=== PATIENT | male | born 1935 | race Caucasian/White ===

== ENCOUNTER → 2023-12-28 12:16 | Outpatient (REF) | payer OTHER, SELFPAY ==
--- NOTE | 2023-12-17 13:50 | TAVREVAL ---
TAVR Evaluation
Transthoracic Echocardiogram
Transthoracic Echocardiogram Date: 11/10/23
P/M: 103/70
DHAVAL: 0.5
AI: not documented
EF %: 65
MR/MAC: MAC, mild to moderate MR
Catherization
Catherization Date: 11/16/23
MG: unable to cross valve
Findings: 40% mid LAD stenosis
CAT Scan
CAT Scan Date: 12/28/23
Physician Visits
Date of Visit CT surgeon: Nakul: 12/28/23
Date of Visit Interventionalist:Hernesto/Hoang/Vel/Shelton: 11/29/23
Primary Ornamental Iron Erector Name: Rod
Date of Visit Primary Ornamental Iron Erector: 11/01/23
PCP Name: Ramirez Perry
Dentist Name: Dr Reynolds
Review of Systems
Review of Systems: Positive for Dyspnea
Plan
Plan:
11/29/2023: Consult for TAVR received from Dr. Eric.
11/30/2023: Reached out and spoke to patient's daughter, Penny Lawrence. Provided contact information and explained the TAVR evaluation process including labs, CT scan, dental clearance and CT surgery consult. Sent email with prescription as well as sent
electronically to lab [facility]ose[facility] for BMP. Will set up CT scan once lab results are received. Asked to get drawn aric. Lab slip and instructions as well as contact information also emailed to Penny.
12/08/2023: Phone call and email to Penny to follow up on blood work. Have not yet received results and not found in [facility] system.
12/15/2023: Received BMP results. Pateint set up for CT scan and consult with Dr. Mota for 12/28/2023. All instructions emailed to Penny as well as verbally reviewed over the phone. Allowed for and answered questions.
12/28/2023: Patient seen in consult with Dr. Mota.Reviewed the pathophysiology of aortic stenosis with the patient and his daughter. Explained the treatment options of SAVR and TAVR. Explained the TAVR evaluation process and Heart Team discussion.
Provided with copy of the TAVR education booklet. Allowed for and answered questions. MG is 70 and patient with recent dizziness and baseline chest discomfort. Stressed the importance of avoiding strenuous activity and rest periods. Patient and
daughter aware if symptoms progress to come to the emergency room. Accompanied to and assisted with CT scan after consult. Plan to discuss at SDM meeting on Wednesday and will call with plan.
== END ==
LOC: RAD 12:16
PROVIDERS: ATTENDING PHYSICIAN Nurse Practitioner Adult Health
DX: I35.0 Nonrheumatic aortic (valve) stenosis (principal)
CPT/HCPCS: 74174; 75572; Q9967

== ENCOUNTER 2024-01-06 07:28 | Inpatient (IN) | payer OTHER, SELFPAY ==
[2024-01-03 13:15] LABS: % Basophils 0.6 % (0-2); % Eosinophils 1.3 % (0-6); % Immature Granulocytes 0.4 % (0-0.5); % Lymphocytes 29.5 % (20.5-51.1); % Monocytes 7.1 % (1.7-9.3); % Neutrophils 61.1 % (42.2-75.2); Absolute Basophils 0.1 10^3/uL (0-0.2); Absolute Eosinophils 0.1 10^3/uL (0-0.7); Absolute Lymphocytes 2.7 10^3/uL (1.2-3.4); Absolute Monocytes 0.6 10^3/uL (0.1-0.6); Absolute Neutrophils 5.5 10^3/uL (1.4-6.5); Hematocrit 33.9 % (39.0-52.0); Hemoglobin 11.2 g/dL (13.0-18.0); Mean Corpuscular Hgb 29.7 pg (27.0-31.0); Mean Corpuscular Volume 89.9 fL (80.0-94.0); Mean Platelet Volume 10.3 fL (7.4-10.4); Nucleated Red Blood Cells % 0 % (-); Platelet Count 217 10^3/uL (130-400); Red Blood Cell Count 3.77 10^6/uL (4.70-6.10); Red Cell Dist. Width 14.8 % (11.5-14.5)
[2024-01-03 13:23] LABS: INR 1.06; PT 13.6 Sec (11.4-14.6)
[2024-01-03 13:24] LABS: APTT 36.2 Sec (23.4-35.0)
[2024-01-03 13:27] LABS: ALT (SGPT) 14 U/L (0-50); AST (SGOT) 33 U/L (17-59); Albumin 3.9 g/dl (3.5-5.0); Alkaline Phosphatase 87 U/L (38-126); Blood Urea Nitrogen 26 mg/dl (9-20); Calcium 9.2 mg/dl (8.4-10.2); Carbon Dioxide 25 mmol/L (22-30); Direct Bilirubin 0.3 mg/dl (0.0-0.4); Estimated Creatinine Clearance 33 ml/min; Glucose 124 mg/dl (70-99); Total Bilirubin 0.3 mg/dl (0.2-1.3); Total Protein 6.8 g/dl (6.3-8.2); eGFR 53.17
[2024-01-03 13:35] LABS: NT-proBNP 7270 pg/ml
--- NOTE | 2024-01-03 13:49 | CM ---
Chart reviewed. Met with the patient and his daughters. Patient is independent of ADLS, lives in an apartment Independent Living at [facility], 0 DME, not current with VN. Reviewed preoperative and postoperative instructions and
restrictions, along with showering guidelines. Gave patient 2 soaps. Patient is agreeable to a home visit by CT Transitional RN. Plan is for the patient to return home with CT Transitional RN.
[2024-01-03 13:50] LABS: Chloride 102 mmol/L (98-107); Potassium 4.6 mmol/L (3.5-5.1); Sodium 137 mmol/L (135-145)
[2024-01-03 14:40] LABS: Glycohemoglobin (HgbA1c) 5.9 % (4.0-5.6)
[2024-01-04 09:01] LABS: Urine Albumin Negative (Neg - Trace); Urine Bilirubin Negative (Negative); Urine Character Very Cloudy (Clear); Urine Color Yellow; Urine Glucose Negative (Negative); Urine Ketone Negative (Negative); Urine Leukocyte Negative (Negative); Urine Nitrite Negative (Negative); Urine Occult Blood Negative (Negative); Urine Specific Gravity 1.015 (<1.030); Urine Urobilinogen Negative (Neg - 1+)
[2024-01-06] VITALS (31 sets, daily range): BP systolic 44–147; BP diastolic 33–118; BMI 18.9
[2024-01-06] MEDS: ANCEF 10 IV ×2 (10:02)
[2024-01-06 11:08] LABS: ACT-LR - POC 261 Seconds (116-155)
--- NOTE | 2024-01-06 11:50 | W.CVOR.SURPR ---
CVOR Surgeon Immed Pre Op
-
I have examined this patient prior to performance of the scheduled procedure.
The patient's condition is unchanged from the time of the dictated/written History and
Physical and the patient is able to undergo the scheduled procedure.
--- NOTE | 2024-01-06 11:51 | W.IMMPOSTOP ---
Addendum entered and electronically signed by Cosme Mota MD 01/06/24 12:18:
[id number]
Original Note:
Surgical Immed Post Op Note
-
STRUCTURAL HEART PROCEDURE NOTE: TAVR
Preoperative Dx:
Severe aortic stenosis (P/M: 103/70, DHAVAL 0.4)
Mild non-obstructive CAD
Cognitive impairment w/ short-term memory loss
Anxiety
Essential tremor
BPH
Prostate CA
Anemia
GERD
HLD
Pancreatic cyst
Postoperative Dx:
Same
Elevated LVEDP c/w [id number] combined systolic/diastolic CHF (LVEDP 28mmHg)
Procedures:
1) L GREEN HOUSE MANAGER access w/ tactile and fluoroscopic guidance, micropuncture technique, 6Fr sheath placement, limited angiography
2) L CFV access w/ fluoroscopic guidance, micropuncture technique, 6Fr sheath placement
3) Placement of temporary RV pacing wire, threshold testing
4) Placement of pigtail catheter in RCC w/ limited aortography & confirmation of co-planar valve deployment angles
5) R GREEN HOUSE MANAGER access w/ tactile and fluoroscopic guidance, micropuncture technique, 6Fr sheath placement, limited angiography
6) Placement of perclose sutures x 2 into R GREEN HOUSE MANAGER, 8Fr sheath placement
7) Serial dilation of R ileofemoral system w/ placement of Sandoval E-sheath
8) Wire purchase across stenotic AV - challenging - AL-1, soft-tip straight, attempt w/ J-wire, successful cross w/ soft-tip straight, LVEDP assessment
9) Pre-TAVR BAV w/ 23mm Z-med
10) R TF TAVR w/ placement of 29mm ETIENNE 3 valve
11) Completion aortography
12) Completion TTE (no AI/PVL, mean gradient 3mmHg, new, small pericardial effusion)
13) Removal of valve-delivery system/Sandoval E-sheath w/ R GREEN HOUSE MANAGER mgmt w/ perclose sutures x 2, manual pressure
14) Completion R ileofemoral angiography w/ small dissection flap in EIA w/o compromise of flow to RLE, no active extravasation
15) Removal of L GREEN HOUSE MANAGER 6Fr sheath w/ mgmt w/ 6Fr angioseal, manual pressure
16) Removal of temporary pacing wire (new BBB w/o any significant bradycardia/pauses) & L CFV 6Fr sheath w/ manual pressure
17) Repeat TTE assessment (small pericardial effusion was unchanged, hemodynamics stable)
Division Officer Weapons Department:
Dr. Raymon Eric
Cardiac Surgeon:
Dr. Cosme Mota
Implants:
Sandoval [employer]iences, SN [id number], 29mm ETIENNE 3 valve
Perclose suture x 2
6Fr angioseal x 1
Complications:
New BBB
Limited retrograde dissection of R EIA
New, small, currently stable pericardial effusion
Cath Data:
Start: 1035, Deploy: 1119, End: 1140
FT: 18.6min, mGy: 158.41, DAP: 24.1299, Contrast: 70mL
Post-TTE: mean gradient 3mmHg, new/small pericardial effusion (stable thus far on delayed echocardiographic reassessment)
Condition:
Stable/guarded to recovery
Additional repeat echocardiography
--- NOTE | 2024-01-06 12:05 | W.PN.UPDATE ---
Update Note
Progress Note Update
Reviewed Mr. Bonilla with the heart team in the preTAVR SDM meeting and confirmed a 29 mm S3 via right transfemoral access. Patient will resume aspirin post TAVR. LVEDP 28mmHg. #29mm S3 (serial# [id number]) successfully deployed via (R) TF access.
Post implant MG 3mmHg.
--- NOTE | 2024-01-06 12:28 | ITS.CL.TAVR ---
Service Department Manager - TAVR Report
TAVR PRocedure
Procedure Report:
TRANSCATHETER AORTIC VALVE REPLACEMENT REPORT
Date: 12/17/2023
Referring physician: Shane Velasco DO
Operators:
varnish thinner: Colten Eric MD
Cardiac surgeon: Cosme Mota MD
Procedure:
Conscious sedation was provided by anesthesia. Using a micropuncture technique, 6F sheaths were placed in the LFA and LFV. A transvenous pacemaker was advanced to the RV and excellent thresholds obtained. A pigtail catheter was advanced to the
aortic root where low volume injections were performed to identify an appropriate angle for valve deployment deployment. Access was then obtained in the right femoral artery using a micropuncture technique. A 6Fsheath was placed and angiography
confirmed a AS400 ANALYST puncture site. Heparin 3000 units was administered. Two perclose sutures were preset using the preclose technique. An 8F sheath was placed in the LFA and an Amplatz extra stiff wire advanced into the thoracic aorta. The ileofemoral
vessels were dilated using the Sandoval 16 F dilator. An Sandoval E sheath was advanced into the descending thoracic aorta. Additional heparin 2000 units was administered. The valve was crossed using a diagnostic 6F AL1 catheter and a straight wire.
An Amplatz extra stiff wire with a homemade curve was placed in the LV apex. Balloon aortic valvuloplasty was performed using a 23 mm Z-Med balloon during rapid ventricular pacing. The patient's hemodynamics recovered quickly following BAV. An
Sandoval 29 mm Lexie S3 valve was then advanced with great difficulty through the E sheath - there were several areas of iliofemoral narrowing which made passing the valve through the sheath extremely difficult. Once this was accomplished the valve
was prepared for transit around the arch to the valve plane. The valve was carefully advanced across the aortic annulus and deployed during rapid ventricular pacing. Echocardiography and aortography confirmed an excellent result. The mean gradient
across the valve was only 3 mmHg with no AI. We noticed a small pericardial effusion which had not been present on the prior echocardiogram of 11/10/2023. The transvenous pacemaker was removed from the RV apex and positioned in the IVC and after
approximately 5 minutes we repeated the echo showing stability of the small pericardial effusion. The valve deployment system was removed. The Sandoval E sheath was then removed and hemostasis obtained with the two perclose sutures. Final angiography
demonstrated a linear dissection in the external iliac region with no significant flow compromise and good runoff below the common femoral artery. The pacemaker was removed and the LFV sheath removed with manual hemostasis. The LFA sheath was
removed using a 6 F angioseal. Prior to transfer off the Table we repeated the echocardiogram continuing to show the small pleural effusion unchanged in size.
Radiation (mGy): 158
DAP (cm2.Gy)): 24.1
More time: 18.6 minutes
Conclusions: Successful placement of 29 mm Lexie S3 aortic valve via right transfemoral approach. There is a small pericardial effusion noted on the postprocedure echocardiogram which remained stable for period of about 20 minutes and was not
causing any hemodynamic compromise. We will monitor the patient carefully and obtain a follow-up echocardiogram in approximately 4 hours. If he develops any hemodynamic instability, he may need pericardiocentesis. There is a nonflow-limiting
external iliac dissection likely resulting from the extreme force required to get the valve through the Sandoval E sheath. We will monitor distal pulses. It is likely that this will heal without incident as it is likely in a retrograde direction.
Copy: Shane Velasco DO, Nakul Khan DO
--- NOTE | 2024-01-06 14:37 | ITS.CL.PN ---
Optometrist - Procedure Note
Procedure
Procedure Note:
PERICARDIOCENTESIS REPORT
Date of Procedure: 01/06/2024
Referring: Cosme Mota MD
PROCEDURE SUMMARY:
Successful pericardiocentesis with removal of 365 mL blood for a hemodynamically significant pericardial effusion several hours after TAVR
DESCRIPTION OF PROCEDURE: The patient was noted at the conclusion of the TAVR procedure to have a small pericardial effusion. At that time he was hemodynamically stable and not requiring pressor therapy. In the recovery room he required Levophed
and had intermittent episodes of hypotension. Interestingly, there was never tachycardia. We felt he would be best treated with pericardiocentesis and informed consent was obtained from his daughter for this procedure. Upon return to the Cath
Lab, prior to the procedure, echocardiography showed the effusion to be significantly larger than it was several hours earlier when he left the Optometrist.
A standard 7 cm micropuncture needle and a 9 cm micropuncture needle could not access the pericardial space. A spinal needle was able to enter the pericardial space and a 6 Turkmen long sheath was placed. Initial intrapericardial pressure was 20
mmHg consistent with tamponade. Fluid hemoglobin was measured at 9.8 with sat 78% consistent with venous blood. Agitated saline injection confirmed proper position of the sheath in the pericardium by echocardiography. At this point, we removed
365 mL of blood. The intrapericardial pressure fell to 7 mmHg. Systolic blood pressure increased from 85 mmHg on 6 mcg/kg/min of Levophed to 159 mmHg off Levophed consistent with relief of tamponade. A drain was left in place to suction and he
was transferred to the recovery room in good condition.
Radiation (mGy): 50
DAP (cm2.Gy): 5.5
Fluoroscopy time: 2.7 minutes
CONCLUSIONS: Successful pericardiocentesis with removal of 365 mL of blood for tamponade occurring as a complication of TAVR. We will monitor drainage and remove the drainage catheter hopefully within the next 24-48 hours
Copy to: Shane Chambers DO, Nakul Khan DO
Colten Eric MD, [facility], [facility]
--- NOTE | 2024-01-06 15:18 | CM ---
Chart reviewed. Patient is in the OR today. Patient is independent of ADLS, lives in a apartment in Independent Living at [facility] access, 0 DME. Plan is for the patient to return home with CT Transitional RN. CM to follow
--- NOTE | 2024-01-06 15:30 | PTCARENOTE ---
Pt arrived to CVICU from the labor relations or personnel negotiator at 1440. Pt awake, alert, and oriented to person and situation. Pt unable to state the date or what hospital he is in. Pt very forgetful. Bed alarm on. Pt remains SR with BBB, HR 70's. BP 120/71 MAP 86. Pulse
oximetry 99% on room air. Bilateral groin sites CDI. Pedal pulses easily palpable. Pericardial drain sutured in place. Pt currently resting comfortably in bed with call arriaza within reach.
[2024-01-06] MEDS: ROXICODONE 5 MG PO (16:28)
[2024-01-06] MEDS: DILAUDID 0.25 MG IV (17:39)
[2024-01-06] MEDS: ANCEF 5 IV (17:39)
[2024-01-06] MEDS: THERAGRAN PO (17:40)
[2024-01-06] MEDS: OSCAL 500 + D 500 MG PO (20:10)
[2024-01-06] MEDS: TYLENOL 650 MG PO (20:11)
[2024-01-06] MEDS: MAALOX 30 ML PO (20:12)
--- NOTE | 2024-01-06 20:15 | PTCARENOTE ---
Assumed care of patient at 1900. Patient found in bed at time of assessment. Patient is AOx1, DO Time, Place, Situation. Patient is forgetful with noticeable short term memory loss. Patient has tremors in both hands. Lung sounds are diminished in
the bases, on RA saO2 at 99%. There is chest drain in place for pericardial effusion that is draining red sanguineous to vacuum bottle. Heart sounds have a regular rate and rhythm. Patient is SR with BBB and long QT on the monitor. Patient has
normal palpable pulses and no edema is noted. There are active BS throughout all four quadrants of soft nontender abdomen. Patient is voiding clear yellow in urinal. Patient has R AC PIV available for intermittent infusion. VSS. Patient c/o
recurrent chest pain that comes and goes history suggests GERD but will continue to monitor. CT PA notified. Received orders for Maalox. No other complaints at this time.
[2024-01-07] VITALS (21 sets, daily range): BP systolic 92–133; BP diastolic 48–116; PULSE 65–82; O2SAT 98–100; BMI 18.7
[2024-01-07] MEDS: MAALOX 30 ML PO (00:50)
[2024-01-07] MEDS: TYLENOL 650 MG PO ×3 (00:50→10:24)
--- NOTE | 2024-01-07 01:00 | PTCARENOTE ---
Patient reassessed. VSS. Patient forgetful attempting to get out of bed throughout night without assistance. Bed alarm in place effective in maintaining patient safety. Patient c/o shoulder pain and heartburn around 0030. Received additional dose of
tylenol and maalox. Remains SR with BBB, PACs, occasional PVCs.
--- NOTE | 2024-01-07 01:37 | PTCARENOTE ---
At 0129 patient with 12 beat run of tachycardia HR 129. CT PA notified. Patient asymptomatic and sleeping at the time. Will continue to monitor.
[2024-01-07 04:01] LABS: Hematocrit 32.2 % (39.0-52.0); Hemoglobin 10.7 g/dL (13.0-18.0); Mean Corp Hgb Conc. 33.2 g/dL (33.0-37.0); Mean Corpuscular Hgb 29.2 pg (27.0-31.0); Mean Corpuscular Volume 87.7 fL (80.0-94.0); Mean Platelet Volume 10.4 fL (7.4-10.4); Platelet Count 174 10^3/uL (130-400); Red Blood Cell Count 3.67 10^6/uL (4.70-6.10); Red Cell Dist. Width 14.6 % (11.5-14.5); White Blood Cell Count 21.3 10^3/uL (4.8-10.8)
[2024-01-07 04:23] LABS: Blood Urea Nitrogen 32 mg/dl (9-20); Calcium 9.4 mg/dl (8.4-10.2); Carbon Dioxide 22 mmol/L (22-30); Chloride 105 mmol/L (98-107); Estimated Creatinine Clearance 33 ml/min; Glucose 117 mg/dl (70-99); Potassium 4.7 mmol/L (3.5-5.1); Sodium 139 mmol/L (135-145); eGFR 53.17
--- NOTE | 2024-01-07 04:45 | PTCARENOTE ---
Patient reassessed. VSS. No c/o pain or discomfort at this time. AM labs obtained. Low UOP noted throughout night although void attempts have been frequent. Bladder scan of patient revealed 368mL in the bladder. Patient able to void 60mL and had
small incontinence episode following scan. Will continue to monitor. AM EKG obtained. On registered nurse cardiac noted to be in SR with BBB, PACs. Patient is stable.
--- NOTE | 2024-01-07 04:55 | W.PN.CT ---
Addendum entered and electronically signed by Cosme Mota MD 01/07/24 13:48:
I saw and examined the patient.
The PA's note was reviewed and I agree with the note.
Comment:
Doing well status post TAVR complicated by limited dissection of right external iliac artery and pericardial effusion requiring pericardiocentesis with catheter remaining. No significant drainage overnight.
Maintain pericardial drain today
Continue to monitor new left bundle branch block
Continue aspirin
OOB/IS
Original Note:
Today's Communication / Plan
-
-pod #1
-no issues overnight
-s/p pericardiocentesis/drain placement post TAVR- 90/140 output in 12/24 hrs
-nsr 70s with IR Diagnostyxq PACs overnight. 12 beat SVT while sleeping, asymptomatic. No kip or pauses
-new LBBB - holding Propranolol
-Echo today
-current meds (ASA, Feosol, Remeron, Protonix). Holding Propranolol
-encourage IS, OOB
Assessment / Plan
-
- Severe symptomatic - s/p Pre-TAVR BAV w/ 23mm Z-med, followed by R TF TAVR w/ placement of 29mm ETIENNE 3 valve on 01/06/24, pod #1
- Elevated LVEDP c/w byvfa-bc-mbybsor combined systolic/diastolic CHF (LVEDP 28mmHg)
- Acute postop tamponade - s/p successful pericardiocentesis with removal of 365 mL of blood
- Acute postop LBBB
- Mild non-obstructive CAD
- Cognitive impairment w/ short-term memory loss
- Anxiety
- Essential tremor
- BPH
- Prostate CA
- Chronic Anemia
- GERD
- HLD
- Pancreatic cyst
Discussed patient care with: Nursing and Care Team
Subjective
Procedure
- s/p Pre-TAVR BAV w/ 23mm Z-med, followed by R TF TAVR w/ placement of 29mm ETIENNE 3 valve on 01/06/24
- successful pericardiocentesis with removal of 365 mL of blood post TAVR
-
Date of Service: January 06, 2024
Objective Data
-
Lab Results
01/03/24 12:43
01/03/24 12:43
PT 13.6 Sec (11.4-14.6) 01/03/24 12:43
INR 1.06 01/03/24 12:43
APTT 36.2 Sec (23.4-35.0) H 01/03/24 12:43
Vital Signs
Vital Signs
Temp Pulse Resp BP Pulse Ox
97.7 F 77 16 132/59 96
01/06/24 23:00 01/06/24 23:30 01/06/24 23:30 01/06/24 23:27 01/06/24 23:30
CT Intake/Output/Weight
01/06/24 01/06/24 01/07/24
06:59 18:59 06:59
Intake Total 1500 / 1500
Output Total 250 / 465 215 / 465
Balance 1250 / 1035 -215 / 1035
SaO2: 96
Physical Exam
-
General: Awake and AOx3 (very forgetful)
Cardiovascular: Regular rate & rhythm, No Murmurs and No Rub
Respiratory: Clear
Incision: Other (groins are cdi, soft, nontender, no hematoma b/l)
Extremities: No Edema (2+ DP b/l)
Data Reviewed
-
Lab Results: Results Reviewed
Medications: Active Meds Reviewed
Chest X-Ray: Report Reviewed and Image Reviewed
ECG: Report Reviewed and Image Reviewed
[2024-01-07] MEDS: ASPIR LOW (ENTERIC COATED) 81 MG PO (07:52)
[2024-01-07] MEDS: PROTONIX 40 MG PO (07:52)
[2024-01-07] MEDS: OSCAL 500 + D 500 MG PO ×2 (07:52→19:50)
[2024-01-07] MEDS: FEOSOL 325 MG PO (07:52)
[2024-01-07] MEDS: THERAGRAN 1 TABLET PO (07:52)
--- NOTE | 2024-01-07 07:54 | W.PN.ANS.POP ---
Anesthesia Post Operative
- Anesthesia Post Op Note
Vital Signs Stable-See Nursing Note: Yes
Airway Patent: Yes
Adequate Pain Control: Yes
Change in Mental Status: No
Current Postoperative Nausea & Vomiting: No
Anesthesia Complications: No
General Anesthetic Recall: No
Unplanned Admission: No
Post Op Hydration Adequate: Yes
--- NOTE | 2024-01-07 08:58 | PTCARENOTE ---
Received pt from multiple cut off saw operator RN; pt AAOx1 and bed alarm on; NSR Prolong QT and L BBB on monitor and VSS; lungs diminished; positive bowel sounds; pt voiding small amounts of urine, bladder scan performed and 377 mls resulted; palpable pulses
throughout; no edema noted; B/L groin dressing C/D/I; Pericardial drain dressing C/D/I; see nursing documentation for further details.
--- NOTE | 2024-01-07 09:58 | CARDSERVLU ---
Echocardiogram with Lumason completed after protocol screening completed. Allergies verified.
Patent IV site: Left arm median cubital 20 G PC
IV site flushed with 0.9% NaCl pre and post administration.
Diluted bolus method utilized to enhance visualization of ventricular pereira.
Total volume given: ___2_ mL
Patient tolerated all procedures well without complications.
--- NOTE | 2024-01-07 10:02 | W.PN.CD ---
Today's Communication / Plan
-
-Post pericardiocentesis
-Drain remains intact. 100 mL over the last 12 hours. Interventional cardiology to assess timing of removing pericardial drain
-Monitor on telemetry with new LBBB
Impression / Plan
-
88-year-old male with history of severe aortic stenosis, mild nonobstructive coronary disease, hypercholesterolemia, mild cognitive impairment who underwent TAVR 01/07/2024.
TAVR 01/07/2024. Procedure complicated by development of pericardial effusion requiring pericardiocentesis. In addition there was a retrograde dissection of the iliac which has been monitored conservatively.
-Cath site is fine
-Pericardial drain remains intact.
-New left bundle branch block. Previous ECG 01/02/2023 with narrow QRS.
-Echo pending
.
Left bundle branch block. Monitor on telemetry. If rhythms remained stable patient will require additional outpatient monitoring.
.
Pericardial effusion
-Post pericardiocentesis
-Drain remains intact. 100 mL over the last 12 hours. Interventional cardiology to assess timing of removing pericardial drain
-Follow-up echo
Physical Exam
Vital Signs/Labs
Vital Signs
Temp Pulse Resp BP Pulse Ox
97.6 F 68 16 95/50 96
01/07/24 08:00 01/07/24 09:00 01/07/24 09:00 01/07/24 09:00 01/07/24 09:25
01/06/24 01/07/24 01/08/24
06:59 06:59 06:59
Actual Weight 57.4 kg
01/07/24 03:46
01/07/24 03:46
PT 13.6 Sec (11.4-14.6) 01/03/24 12:43
INR 1.06 01/03/24 12:43
APTT 36.2 Sec (23.4-35.0) H 01/03/24 12:43
Magnesium 2.0 mg/dl (1.6-2.3) 01/07/24 03:46
01/03/24
12:43
[id number]-Eqnbpfltyxp Pept 7270
Physical Exam
Constitutional: No acute distress
Cardiovascular: Rhythm & rate is regular and Other (Pericardial rub. Pericardial drain intact)
Respiratory: Respiratory effort normal
GI: Soft, Non tender, Normal bowel sounds and Other (Nontender. No mass)
Neuro/Psych: Alert and Other (Cooperative.)
Other: Other (Bilateral groin cath sites are fine.)
Data Reviewed
-
Date of Service: January 07, 2024
EKG: Tracing Personally Visualized and interpreted and Report Reviewed by me
X-Ray/CT/US/MRI/NUC/PET: Report Reviewed by me
Medical Tests (PFT, Pathology etc): Report Reviewed by me
Labs: Labs Reviewed by me
[2024-01-07] MEDS: LIDOCAINE 4% PATCH 2 PATCH TOPICAL (11:49)
--- NOTE | 2024-01-07 12:30 | PTCARENOTE ---
Assessment unchanged; NSR L BBB on monitor and VSS; family at bedside update given; bladder scan 394mls.
--- NOTE | 2024-01-07 14:02 | W.PN.UPDATE ---
Update Note
Progress Note Update
Patient to wear a accounts payable assistant for 14 days following discharge. Device given to patient's daughter to apply upon discharge. Reviewed how to apply, change leads, charge and return the monitor after the 14 days. Allowed for and answered questions.
Trifold leaflet reviewed as well as help desk number if any questions regarding the monitor.
--- NOTE | 2024-01-07 15:45 | PTCARENOTE ---
NSR L BBB on monitor and VSS: assessment unchanged; pt voided small amount in toilet, bladder scan 366mls; pt resting in bed with bed alarm on and in place and family at bedside.
--- NOTE | 2024-01-07 16:26 | CM ---
Chart reviewed. Patient is independent of ADLS, lives alone in independent living at [facility]. Patient appears weak and deconditioned. Family requesting patient to go to SNF at [facility] before returning back to his apartment. [facility] at [facility] has a bed available. Patient needs PT evaluation. Multiple attempts at contacting PT for an evaluation without assessment. Patient also needs insurance preauthorization. Plan is for the patient to go to SNF
--- NOTE | 2024-01-07 16:33 | PTCARENOTE ---
Dr Eric at bedside, Pericardial drain removed. NSR L BBB on monitor and VSS; updates given to daughters by Dr Eric.
--- NOTE | 2024-01-07 17:19 | CM ---
Patient was approved Skilled Level 1 01/07-01/10 NRD 01/10 to be called to [phone]. Auth #[id number]
--- NOTE | 2024-01-07 20:37 | PTCARENOTE ---
Received patient for 7p-7a shift. Pt AAOx1, pleasantly confused. NSR on surveillance system monitor, VSS. 1 person assist to bathroom. Pericardial drain d/c earlier today, mid chest dsg c/d/i. Pt denies chest pain, sob at this time. IS up to 1500, encouraged.
Medications administered as ordered. Bed and chair alarm maintained. Call arriaza in reach, pt demonstrates use of call arriaza. Pt maintained in view of nurses' station. Will continue to monitor.
[2024-01-07] MEDS: REMERON 7.5 MG PO (21:07)
[2024-01-08] VITALS (7 sets, daily range): BP systolic 101–142; BP diastolic 51–60; PULSE 81; O2SAT 95–100; BMI 18.8
--- NOTE | 2024-01-08 04:55 | W.PN.CT ---
Addendum entered and electronically signed by Cosme Mota MD 01/08/24 10:03:
I saw and examined the patient.
The PA's note was reviewed and I agree with the note.
Comment:
No issues. At baseline. Pericardial drain removed yesterday
No pauses/bradycardia
Monitor in-place given new LBBB
OK for D/C to [facility] today
Original Note:
Today's Communication / Plan
-
-No major issues overnight. Hemodynamically and neurologically intact
-Alert and oriented x 1 (not oriented to place or time) but appears to be baseline, pleasant
-Groin is C/D/I without ecchymosis or significant hematoma. Cont. to monitor
-Pericardial drain d/c'd by Dr. Eric yesterday 01/06
-Repeat echo yesterday 01/06 showed TAVR to be well seated with PG/MG of 10/4 mmHg without aortic regurgitation, trivial pericardial effusion
-EKG still shows new LBBB, no rhythm issues overnight
-Cont. current meds (ASA only, Remeron)
-OOB into chair/Ambulate
-D/C to SNF @ [facility], will need COVID test prior
-Going to SNF with heart monitor ([facility]) X 14 days per Cardiology
Assessment / Plan
-
- Severe symptomatic - s/p Pre-TAVR BAV w/ 23mm Z-med, followed by R TF TAVR w/ placement of 29mm ETIENNE 3 valve on 01/06/24, pod #2
- Elevated LVEDP c/w [id number] combined systolic/diastolic CHF (LVEDP 28mmHg)
- Acute postop tamponade - s/p successful pericardiocentesis with removal of 365 mL of blood
- Acute postop LBBB
- Mild non-obstructive CAD
- Cognitive impairment w/ short-term memory loss
- Anxiety
- Essential tremor
- BPH
- Prostate CA
- Chronic Anemia
- GERD
- HLD
- Pancreatic cyst
Discussed patient care with: Cardiology, Nursing, Respiratory Therapy, Pharmacy and Care Team
Subjective
Procedure
- s/p Pre-TAVR BAV w/ 23mm Z-med, followed by R TF TAVR w/ placement of 29mm ETIENNE 3 valve on 01/06/24
- successful pericardiocentesis with removal of 365 mL of blood post TAVR
-
Date of Service: January 08, 2024
Pt c/o mild incisional pain, otherwise feels well
Objective Data
-
PT 13.6 Sec (11.4-14.6) 01/03/24 12:43
INR 1.06 01/03/24 12:43
APTT 36.2 Sec (23.4-35.0) H 01/03/24 12:43
Vital Signs
Vital Signs
Temp Pulse Resp BP Pulse Ox
98.1 F 75 18 108/57 95
01/07/24 23:19 01/08/24 00:30 01/07/24 23:19 01/07/24 23:19 01/07/24 23:19
CT Intake/Output/Weight
01/07/24 01/07/24 01/08/24
06:59 18:59 06:59
Output Total 345 / 595 55 / 55
Balance -345 / 905 -55 / -55
SaO2: 95 (RA)
Physical Exam
-
General: Awake and Oriented (x1 (not oriented to place or time))
Cardiovascular: Regular rate & rhythm, No Murmurs, No Rub and No Gallop
Respiratory: Clear
Sternum: Stable
Incision: Clean, Dry, Intact and Dressing Intact
Extremities: No Edema
Data Reviewed
-
Lab Results: Results Reviewed
Medications: Active Meds Reviewed
Chest X-Ray: Report Reviewed and Image Reviewed
ECG: Report Reviewed and Image Reviewed
--- NOTE | 2024-01-08 05:16 | PTCARENOTE ---
Patient reassessed, assessment unchanged from previous. Oriented to self, pleasantly confused at baseline. SR w bbb, pacs and pvcs on conveyor monitor, VSS. EKG done, labs drawn and sent. Pt resting comfortably. Will continue to monitor.
[2024-01-08 05:23] LABS: Hemoglobin 9.4 g/dL (13.0-18.0); Mean Corp Hgb Conc. 33.6 g/dL (33.0-37.0); Mean Corpuscular Hgb 29.7 pg (27.0-31.0); Mean Corpuscular Volume 88.3 fL (80.0-94.0); Mean Platelet Volume 10.6 fL (7.4-10.4); Platelet Count 138 10^3/uL (130-400); Red Blood Cell Count 3.17 10^6/uL (4.70-6.10); Red Cell Dist. Width 14.8 % (11.5-14.5); White Blood Cell Count 11.9 10^3/uL (4.8-10.8)
[2024-01-08 05:48] LABS: Blood Urea Nitrogen 34 mg/dl (9-20); Calcium 9.2 mg/dl (8.4-10.2); Carbon Dioxide 23 mmol/L (22-30); Chloride 105 mmol/L (98-107); Estimated Creatinine Clearance 30 ml/min; Glucose 107 mg/dl (70-99); Potassium 4.2 mmol/L (3.5-5.1); Sodium 135 mmol/L (135-145); eGFR 48.65
[2024-01-08] MEDS: FEOSOL 325 MG PO (07:42)
[2024-01-08] MEDS: OSCAL 500 + D 500 MG PO (07:42)
[2024-01-08] MEDS: ASPIR LOW (ENTERIC COATED) 81 MG PO (07:42)
[2024-01-08] MEDS: PROTONIX 40 MG PO (07:42)
[2024-01-08] MEDS: LIDOCAINE 4% PATCH TOPICAL (07:42)
[2024-01-08] MEDS: THERAGRAN 1 TABLET PO (07:42)
[2024-01-08 07:55] LABS: COVID-19 Antigen Negative (Negative)
--- NOTE | 2024-01-08 08:00 | PTCARENOTE ---
Assumed care of patient from assistant casino shift manager RN. AAO to self, pleasant but very poor short term memory. Needs frequent redirecting. Bed alarm and chair alarm on and armed. SR w/ BBB and PVC's on monitor. Room air 96%. IS to 1000 with assistance .
Surgical sites c,d,i. Voiding in bathroom. No edema appreciated. Plan for day discussed.
--- NOTE | 2024-01-08 08:14 | W.PN.CD ---
Today's Communication / Plan
-
Agree with plans
F/u planned
Impression / Plan
-
88-year-old male with history of severe aortic stenosis, mild nonobstructive coronary disease, hypercholesterolemia, mild cognitive impairment who underwent TAVR 01/07/2024.
TAVR 01/07/2024 for severe symptomatic (elevated LVEDP noted)
- Pericardial drain removed 01/07/2024
- Doing well
New LBBB
- No AV block on tele
- Plan is for outpt [facility]
Physical Exam
Vital Signs/Labs
Vital Signs
Temp Pulse Resp BP Pulse Ox
97.5 F 80 16 109/56 98
01/08/24 07:42 01/08/24 07:42 01/08/24 07:42 01/08/24 05:02 01/08/24 07:42
01/07/24 01/08/24 01/09/24
06:59 06:59 06:59
Actual Weight 57.4 kg 57.7 kg
01/08/24 05:00
01/08/24 05:00
PT 13.6 Sec (11.4-14.6) 01/03/24 12:43
INR 1.06 01/03/24 12:43
APTT 36.2 Sec (23.4-35.0) H 01/03/24 12:43
Magnesium 2.0 mg/dl (1.6-2.3) 01/08/24 05:00
01/03/24
12:43
Ogk-Z-Ioqgnobriwb Pept 7270
Physical Exam
Constitutional: No acute distress
Cardiovascular: Rhythm & rate is regular and Pedal edema is absent
Respiratory: Respiratory effort normal and Lungs clear to auscul.
GI: Soft and Distention absent
Neuro/Psych: Alert
Data Reviewed
-
Date of Service: January 08, 2024
--- NOTE | 2024-01-08 11:18 | W.DCSUMMARY ---
Discharge Summary
Discharge Data
Date of Admission: 01/06/24
Date of Discharge: 01/08/24
Total time spent discharging patient (in min): 60
-
Pending Results: No
Hospital Course
Patient was admitted electively and underwent transfemoral transcatheter aortic valve replacement by Drs. Cosme Mota & Colten Eric on January 06, 2024. Please refer to their separately dictated operative reports for complete details.
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 Patient also had a new left bundle branch block. There was
also a new pericardial effusion that developed postoperatively as well as worsening shock requiring pressor support. Transthoracic echocardiogram revealed a new pericardial effusion for which a pericardiocentesis was done and a drain placed. The
drain was removed the afternoon of postoperative day #1. Repeat transthoracic echocardiogram showed a trivial pericardial effusion, a well-seated transcatheter valve with acceptable gradients and no aortic insufficiency. Ultimately, the patient
was cleared for discharge to a long-term facility with plans for further discharge back to his assisted living arrangement. Patient will be discharged with a heart monitor given his new left bundle branch block. This will be followed by
cardiology outpatient. We will stop his home propranolol to avoid propagating further rhythm disturbances.
Discharge Plan
-
Patient Disposition: Long-Term/SNF
Discharge Diagnosis/Procedures: - Severe symptomatic aortic stenosis-status post pretranscatheter aortic valve replacement balloon aortic valvuloplasty with 23mm Z-med, followed by right transfemoral transcatheter aortic valve replacement with 29mm
Sandoval ETIENNE 3 valve on 01/06/24
- Elevated left ventricular end-diastolic pressure consistent with [id number] combined systolic/diastolic congestive heart failure
- Acute postoperative cardiac tamponade -status post successful pericardiocentesis with removal of 365 mL of blood
- Acute postoperative left bundle branch block
- Mild non-obstructive coronary artery disease
- Cognitive impairment with short-term memory loss
- Anxiety
- Essential tremor
- Benign prostatic hyperplasia
- Prostate cancer
- Chronic Anemia
- Gastroesophageal reflux disease
- Hyperlipidemia
- Pancreatic cyst
Diet: Low Cholesterol and 2 Gram Sodium
Activity: As tolerated
Driving Restrictions: No driving for 1 week
Bathing Restrictions: OK to Shower
Others Tests: 30 Day Follow Up Echocardiogram: 02/08/2024 at 2:20pm in Dr. Velasco's office.
Other Services: Cardiac Rehab
Wound Care: Please do not apply lotions, creams or powders to groin areas. Please monitor groins for increased pain, swelling, redness or drainage. Notify your doctor if any occur.
Specialty Instructions: Weigh Daily- Call MD for wt gain/loss 3 lbs overnight/5 lbs in 1 week
Activity Restrictions/Additional Instructions:
Please call to make appointments for Phase II Cardiac Rehab (if able):
[facility]: [phone]
[facility]: [phone]
Referrals:
[facility] [Other] (FAX [phone])
Shane Velasco DO [Active] - 02/01/24 2:00 pm
SERAFIN DORANTES DO [Family Provider] -
Cosme Mota MD [Active] - in two weeks
Prescriptions:
New
acetaminophen 325 mg Tablet
650 mg PO Q4HPRN PRN (Reason: PEGUERO, mild pain, or fever >101F) Qty: 60 0RF
Continued
aspirin [Aspir-81] 81 mg Tablet,Delayed Release (Dr/Ec)
81 mg PO DAILY
pantoprazole 40 mg Tablet,Delayed Release (Dr/Ec)
40 mg PO DAILY
mirtazapine 7.5 mg Tablet
7.5 mg PO HS
Slow Rel Iron 160 mg (50 mg iron) Tablet Extended Release
160 mg PO DAILY
calcium carbonate-vitamin D3 [Calcium 500 + D] 500 mg-10 mcg (400 unit) Tablet
1 tab PO BID
Discontinued
propranolol 10 mg Tablet
10 mg PO HS
Discharge Orders:
Discharge Patient (As Directed); Ordered 01/08/24
Ordered By: Tyrese Morton
Care Plan Goals
Care Plan Goals:
Problem: Readiness for enhanced knowledge related to diagnosis and treatment plan
Goal: Understand your diagnosis and treatment plan needs, including medications if applicable.
Instructions: Know your diagnosis, underlying causes and treatment plan options, including medications if applicable. Consult with your health care team to learn about your diagnosis and treatment plan, including medications if applicable.
Discharge Date and Time
Print Language: TAMAZIGHT
--- NOTE | 2024-01-08 12:42 | PTCARENOTE ---
Report called to [facility]. INT and monitor removed by RN. Daughter placed temporary monitor on patient while utilizing monitor handout. Dressed by staff and wheeled to car by RN
[2024-01-11 08:43] LABS: ACT-LR - POC > 397 Seconds (116-155)
== END 2024-01-08 12:04 | DRG 266 ==
LOC: CVICU 07:28
PROVIDERS: Clinical Nurse Specialist Acute Care; ADMITTING PHYSICIAN Thoracic Surgery (Cardiothoracic Vascular Surgery); CONSULT PHYSICIAN Internal Medicine Cardiovascular Disease; FAMILY PHYSICIAN Internal Medicine
PROC: 02RF38Z Replacement of Aortic Valve with Zooplastic Tissue, Percutaneous Approach (ICD-10-PCS; 2024-01-06)
PROC: 0W9D3ZZ Drainage of Pericardial Cavity, Percutaneous Approach (ICD-10-PCS; 2024-01-06)
DX: I35.0 Nonrheumatic aortic (valve) stenosis (principal); I50.43 Acute on chronic combined systolic (congestive) and diastolic (congestive) heart failure; I77.72 Dissection of iliac artery; K86.2 Cyst of pancreas; R57.9 Shock, unspecified; I31.39 Other pericardial effusion (noninflammatory); I31.4 Cardiac tamponade; I97.51 Accidental puncture and laceration of a circulatory system organ or structure during a circulatory system procedure; I25.10 Atherosclerotic heart disease of native coronary artery without angina pectoris; F41.9 Anxiety disorder, unspecified; G25.0 Essential tremor; N40.0 Benign prostatic hyperplasia without lower urinary tract symptoms; K21.9 Gastro-esophageal reflux disease without esophagitis; I44.7 Left bundle-branch block, unspecified; D64.9 Anemia, unspecified; G31.84 Mild cognitive impairment of uncertain or unknown etiology; E78.00 Pure hypercholesterolemia, unspecified; Y83.2 Surgical operation with anastomosis, bypass or graft as the cause of abnormal reaction of the patient, or of later complication, without mention of misadventure at the time of the procedure; Z11.52 Encounter for screening for COVID-19; Z79.82 Long term (current) use of aspirin; Z79.899 Other long term (current) drug therapy; Z85.46 Personal history of malignant neoplasm of prostate
CPT/HCPCS: 93308; 33016; 33361; 36415; 71045; 71046; 80048; 80053; 81003; 82248; 83036; 83735; 83880; 85025; 85027; 85347; 85610; 85730; 86850; 86900; 86901; 87070; 87811; 93005; 93306; 93321; 93325; 97162; 97166; C1760; C1769; C1894; P9045; Q9967

== ENCOUNTER 2024-01-09 12:43 | Inpatient (IN) | payer OTHER, SELFPAY ==
[2024-01-09] VITALS (9 sets, daily range): BP systolic 102–115; BP diastolic 49–63; BMI 19.5
--- NOTE | 2024-01-09 10:41 | ED.GENMED ---
History of Present Illness
General
Chief Complaint: Heart Rate Problem
Source: patient and family
Exam Limitations: none
Time Seen by Provider: 01/09/24 10:10
Travel History
Have you had any contact with someone who has COVID-19?: No
Do you have any symptoms of coronavirus? Fever > 100 degrees, chills, cough, shortness of breath, sore throat, loss of taste or smell, muscle aches, or headache?: No
History of Present Illness
History of Present Illness:
See MDM
Past History
Past History
ED Past Medical History: Arrthythmia and HTN
ED Past Surgical History: Cardiac
Social History
Tobacco: Non-smoker
Alcohol: None
Phy Exam
Physical Exam
Physical Exam:
See MDM
Course
Orders/Labs/Results
Orders:
Orders
01/09/24 10:04
Electrocardiogram (*1) Urgent
Reason for Study: Abnormal EKG
EKG- Treatment ONCE
01/09/24 10:41
Consult Cardiology [CARDIOLOGY CONSULT] Routine
Consulting Provider: Rodolfo Dowell
Was physician already notified: Yes
01/09/24 10:48
Complete Blood Count/With Diff Urgent
Comprehensive Metabolic Panel Urgent
Magnesium Urgent
PTT Urgent
Prothrombin Time Urgent
TSH Reflex To Free T4 Urgent
01/09/24 10:51
Metoprolol Xl [Toprol Xl] 50 mg PO NOW STA
Abnormal Lab Results
01/09/24
10:48
RBC 3.19 L 10^6/uL
(4.70-6.10)
Hgb 9.6 L g/dL
(13.0-18.0)
Hct 27.5 L %
(39.0-52.0)
RDW 14.9 H %
(11.5-14.5)
MPV 10.8 H fL
(7.4-10.4)
Absolute Neuts (auto) 6.7 H 10^3/uL
(1.4-6.5)
Absolute Monos (auto) 0.8 H 10^3/uL
(0.1-0.6)
PT 15.2 H Sec
(11.4-14.6)
APTT 39.6 H Sec
(23.4-35.0)
BUN 34 H mg/dl
(9-20)
Glucose 125 H mg/dl
(70-99)
Total Protein 6.1 L g/dl
(6.3-8.2)
01/09/24 10:48
01/09/24 10:48
Vital Signs
Initial and Last Documented VS:
Initial Vital Signs
Temp Pulse Resp BP Pulse Ox
97.8 F 91 16 115/56 99
01/09/24 09:59 01/09/24 09:59 01/09/24 09:59 01/09/24 09:59 01/09/24 09:59
Last Documented Vital Signs
Temp Pulse Resp BP Pulse Ox
97.8 F 91 16 115/56 99
01/09/24 09:59 01/09/24 09:59 01/09/24 09:59 01/09/24 09:59 01/09/24 09:59
MDM/Problems Addressed
Differential Diagnosis Includes:
HPI and MDM Narrative:
88-year-old male presenting for evaluation of new onset A-fib. Patient had a recent TAVR which was complicated by pericardial tamponade and vascular bleeding issues. Patient was sent home on a Holter monitor and he was showing evidence of A-fib.
He was sent back in for evaluation
Patient did not know he was in A-fib.
On arrival, patient currently in sinus rhythm
Physical exam
General: Well appearing and non-toxic
HEENT: protecting airway
Neck: appears supple
CV: No evidence of cyanosis. Regular rate and rhythm
Resp: No accessory muscle use. Lungs clear
Abd: Non-distended
Extremities: No deformities. No leg edema
Neuro: alert
Psych: Normal affect
Skin: Intact
Problems Addressed including Acute and Chronic Conditions affecting care:
1. New onset A-fib
Acuity: acute
Prognosis: stable
Details: Likely expected complication of TAVR. Patient currently in sinus rhythm. Will start Toprol XL
Updates
Per cardiology, will start Toprol
Differential Diagnosis (but not limited to): New onset A-fib, hyperthyroidism, metabolic abnormality
Testing considered: Troponin but he just had to have
Drug therapy (if applicable): OTC meds, please see d/c instruction regarding Rx drugs
Amount and/or Complexity of Data Reviewed
Clinical info obtained from: Patient
External data reviewed: N/A
Labs I independently reviewed (but not limited to): Baseline anemia
Radiology: N/A
Pulse Ox: not hypoxic
EKG independently reviewed: Sinus rhythm, left bundle branch block, no STEMI
Cuff Setter Overlock: Left bundle branch block
Critical Care: N/A
Risk of Complication:
Social Determinants of health: Good social support
Discussed with other providers: Cardiology, hospitalist
Escalation of Care includes Admit/Obs: Given the new onset A-fib, will admit for echo before starting anticoagulate
Occasional wrong word or 'sound a like' substitutions may have occurred due to the inherent limitations of voice recognition software. Read the chart carefully and recognize, using context, where substitutions have occurred.
*Critical Care Note
Total Time (30-74mins, 75-104mins- exclusive of procedures): Not Applicable
ED Attending Note
-
Portions of this chart may have been created with voice recognition software.� Occasional wrong word or��sound alike� substitutions may have occurred due to the inherent limitations of voice recognition software.
Discharge Plan
Departure
Patient Disposition: Admit
Date of Disposition: 01/09/24
Time of Disposition: 11:42
Admit to: Telemetry
Presentation/result/management discussed w/ accepting MD/DO: Hospitalist
Discharge Problem:
New onset a-fib
Prescriptions:
No Action
aspirin 81 mg Tablet,Delayed Release (Dr/Ec)
81 mg PO DAILY
pantoprazole 40 mg Tablet,Delayed Release (Dr/Ec)
40 mg PO DAILY
mirtazapine 7.5 mg Tablet
7.5 mg PO HS
ferrous sulfate, dried 160 mg (50 mg iron) Tablet Extended Release
160 mg PO DAILY
calcium carbonate-vitamin D3 [Calcium 500 + D] 500 mg-10 mcg (400 unit) Tablet
1 tab PO BID
acetaminophen 325 mg Tablet
650 mg PO Q4HPRN PRN (Reason: PEGUERO, mild pain, or fever >101F) Qty: 60 0RF
Referrals:
UNKNOWN - PT DOES,NOT KNOW [Family Provider] -
Interventions
Interventions:
*Risk Screen - Suicide Last Done: 01/09/24 10:27
*General Assessment Last Done: 01/09/24 10:27
*Neglect/Abuse Screening Last Done: 01/09/24 10:27
ED- Fall Risk Assessment Last Done: 01/09/24 10:27
*ED COVID-19 Vaccine History Last Done: 01/09/24 10:00
ED- Cardiac Assessment Last Done: 01/09/24 10:27
ED- Pulmonary Assessment Last Done: 01/09/24 10:27
Discharge Date and Time
Print Language: [place]
[2024-01-09] MEDS: TOPROL XL 50 MG PO (11:03)
[2024-01-09 11:07] LABS: % Basophils 0.2 % (0-2); % Eosinophils 0.5 % (0-6); % Immature Granulocytes 0.3 % (0-0.5); % Lymphocytes 22.4 % (20.5-51.1); % Neutrophils 68.6 % (42.2-75.2); Absolute Eosinophils 0.1 10^3/uL (0-0.7); Absolute Lymphocytes 2.2 10^3/uL (1.2-3.4); Absolute Monocytes 0.8 10^3/uL (0.1-0.6); Absolute Neutrophils 6.7 10^3/uL (1.4-6.5); Hematocrit 27.5 % (39.0-52.0); Hemoglobin 9.6 g/dL (13.0-18.0); Mean Corp Hgb Conc. 34.9 g/dL (33.0-37.0); Mean Corpuscular Hgb 30.1 pg (27.0-31.0); Mean Corpuscular Volume 86.2 fL (80.0-94.0); Mean Platelet Volume 10.8 fL (7.4-10.4); Nucleated Red Blood Cells % 0 % (-); Platelet Count 149 10^3/uL (130-400); Red Blood Cell Count 3.19 10^6/uL (4.70-6.10); Red Cell Dist. Width 14.9 % (11.5-14.5); White Blood Cell Count 9.8 10^3/uL (4.8-10.8)
[2024-01-09 11:13] LABS: INR 1.21; PT 15.2 Sec (11.4-14.6)
[2024-01-09 11:14] LABS: APTT 39.6 Sec (23.4-35.0)
[2024-01-09 11:20] LABS: ALT (SGPT) 11 U/L (0-50); AST (SGOT) 41 U/L (17-59); Albumin 3.5 g/dl (3.5-5.0); Alkaline Phosphatase 72 U/L (38-126); Blood Urea Nitrogen 34 mg/dl (9-20); Calcium 9.1 mg/dl (8.4-10.2); Carbon Dioxide 24 mmol/L (22-30); Chloride 104 mmol/L (98-107); Estimated Creatinine Clearance 34 ml/min; Glucose 125 mg/dl (70-99); Potassium 4.1 mmol/L (3.5-5.1); Sodium 137 mmol/L (135-145); Total Bilirubin 0.5 mg/dl (0.2-1.3); Total Protein 6.1 g/dl (6.3-8.2); eGFR 53.17
--- NOTE | 2024-01-09 12:06 | HPS.HSE ---
Family Physician
-
Family Physician: NOT KNOW UNKNOWN - PT DOES
Chief Complaint
-
Atrial fibrillation
History of Present Illness
88-year-old with past medical history of hyperlipidemia, anxiety, acid reflux, aortic stenosis presented to us with new onset.. Patient had a recent TAVR on , which was complicated by pericardial tamponade and vascular bleeding issues.
Patient was sent home on a Holter monitor and he was showing evidence of A-fib. Patient denied any chest pain, short of breath, palpitation. Patient denied any headache, dizziness, syncopal episode. Patient denied any runny nose, nasal
congestion, cough. Patient denied abdominal pain, nausea, vomiting or diarrhea. Patient denied dysuria hematuria.
Patient received a dose of Toprol in ER. At present patient is normal sinus rhythm. Admitting for further management
Medical History
Past Medical History
Past Medical History: Reports Other
Additional Past Medical History:
Hyperlipidemia
Anxiety
Acid reflux
Aortic stenosis
Prostate cancer
Past Surgical History: Reports Other
Additional Past Surgical History:
TVAR
Right hip replacement
Hernia surgery
Social History
Tobacco: Former Smoker
Alcohol: Occasional
Drug: None
Personal: Single
Living: Alone
Family History
Family History: Not pertinent
Allergies / Home Medications
Allergies reflects when Allergies were last updated in [facility].
Home Medications with original date entered in [facility]
Allergy/Medication List:
Allergies
Allergy/AdvReac Type Severity Reaction Status Date / Time
No Known Allergies Allergy Verified 01/06/24 08:00
Home Medications
aspirin 81 mg tablet,delayed release 81 mg PO DAILY Blood Clot Prevention/Tx 12/31/23
calcium carbonate 500 mg-vitamin D3 10 mcg (400 unit) tablet (Calcium 500 + D) 1 tab PO BID Supplement 12/31/23
ferrous sulfate, dried 160 mg (50 mg iron) tablet,extended release 160 mg PO DAILY Supplement 12/31/23
mirtazapine 7.5 mg tablet 7.5 mg PO HS Mental Health/Anxiety 12/31/23
pantoprazole 40 mg tablet,delayed release 40 mg PO DAILY Gastrointestinal Issue 12/31/23
acetaminophen 325 mg tablet 650 mg (2 x 325 mg) PO Q4HPRN PRN PEGUERO, mild pain, or fever >101F #60 tabs 01/08/24
Review of Systems
-
Constitutional: Reports No Symptoms
EENT: Reports No Symptoms
Respiratory: Reports No Symptoms
Cardiac: Reports No Symptoms
Abdomen/GI: Reports No Symptoms
: Reports No Symptoms
Musculoskeletal: Reports No Symptoms
Skin: Reports No Symptoms
Neurological: Reports No Symptoms
Endocrine: Reports No Symptoms
Hematologic/Lymphatic: Reports No Symptoms
Psych: Reports No Symptoms
Physical Exam
Vital Signs
Vital Signs
Temp Pulse Resp BP Pulse Ox
97.8 F 69 17 106/54 97
01/09/24 09:59 01/09/24 12:00 01/09/24 12:00 01/09/24 12:00 01/09/24 12:00
Physical Exam
General: Well Developed, Well Nourished and No Apparent Distress
HEENT: NormoCephalic, Moist mucous membranes and Atraumatic
Respiratory: Clear
Cardiac: S1/S2 and Regular Rhythm; No Murmur or Rub
GI: Soft, Non Tender, Non Distended and Normal Bowel Sounds; No Organomegaly
Rectal: Deferred by Provider
Musculoskeletal: No Clubbing, No Cyanosis and No Edema
Skin: No Rash
Neuro: AO x 3 and Nonfocal/grossly intact
Psych: Calm
Laboratory Results
-
01/09/24 10:48
01/09/24 10:48
Laboratory Results
PT 15.2 Sec (11.4-14.6) H 01/09/24 10:48
INR 1.21 01/09/24 10:48
APTT 39.6 Sec (23.4-35.0) H 01/09/24 10:48
Total Bilirubin 0.5 mg/dl (0.2-1.3) 01/09/24 10:48
AST 41 U/L (17-59) 01/09/24 10:48
ALT 11 U/L (0-50) 01/09/24 10:48
Alkaline Phosphatase 72 U/L (38-126) 01/09/24 10:48
Data Reviewed
-
Lab Data: Labs Reviewed by me
Impression/Plan
-
#new onset atrial fib
-At present EKG normal sinus rhythm
-Received a dose of metoprolol
-Obtain echo
-Anticoagulation to cardiology
-Cardiology consulted
# Normocytic anemia likely postop
-Hemoglobin 9.6
-No active bleeding
-Continue to monitor
-ferrous sulfte continued
#hypothyroidism
-TSH 58.70
-T4 is pending
-initiate on levothyroxine
#recent AVR 01/07/2024 for severe symptomatic
- Pericardial drain removed 01/07/2024
GERD
-PPI continued
#insomnia
mirtazapine continued
#DVT prophylaxis
-scd
#CODE status
-full code no intubation
[2024-01-09 12:20] LABS: Free T4 0.65 ng/dl (0.78-2.19)
--- NOTE | 2024-01-09 12:25 | PHANOTE ---
Med Rec Note- called [facility] at [phone] for patient medication list, patient on 2nd floor at skilled rehab, spoke to Danuta waiting for list to be faxed over to education director pod 1 printer
--- NOTE | 2024-01-09 15:42 | W.PN.CD ---
Today's Communication / Plan
-
Add BB
Echo Wed
Add Eliquis if echo OK on Wednesday, or a few days later if prefered by valve team
Impression / Plan
-
New PAF with RVR
- Rhythm: back to sinus. For now plan just BB and no AAD. Not ablation candidate
- Rate: Sinus in mid 60s at rest. In AFib 140s. => will add some BB
- Anticoagulation: plan Eliquis if copay ok and no effusion on echo 01/11/2024
- [id number] at least 3 (HTN, age2)
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
New LBBB, a direct complication of TAVR
- Continue with monitor technician as planned
Recent hemorrhagic tamponade, a direct complication of TAVR
Mild cognitive impairment may being progressing rapidly per his family present at bedside
Mild nonobstructive CAD
BPH
GERD
Anemai
HTN
Physical Exam
Vital Signs/Labs
Vital Signs
Temp Pulse Resp BP Pulse Ox
97.9 F 62 20 113/63 100
01/09/24 15:32 01/09/24 13:45 01/09/24 15:32 01/09/24 13:06 01/09/24 15:32
01/08/24 01/09/24 01/10/24
06:59 06:59 06:59
Actual Weight 60 kg
01/09/24 10:48
01/09/24 10:48
PT 15.2 Sec (11.4-14.6) H 01/09/24 10:48
INR 1.21 01/09/24 10:48
APTT 39.6 Sec (23.4-35.0) H 01/09/24 10:48
Magnesium 2.0 mg/dl (1.6-2.3) 01/09/24 10:48
Free T4 0.65 ng/dl (0.78-2.19) L 01/09/24 10:48
Data Reviewed
-
Date of Service: January 09, 2024
--- NOTE | 2024-01-09 18:36 | W.PN.UPDATE ---
Update Note
Progress Note Update
This note serves as an addendum to the H&P by LISSY Mar, on January 09, 2024.
History of Presenting Illness
88-year-old with past medical history of hyperlipidemia, anxiety, acid reflux, aortic stenosis status post recent TAVR complicated by pericardial tamponade and vascular bleeding issues. Patient was sent home on a Holter monitor and he was showing
evidence of A-fib. Patient denied any chest pain, shortness of breath or any other symptoms.
Patient received a dose of Toprol in ER.
Physical Exam
General: Well Developed, Well Nourished and No Apparent Distress
HEENT: Normocephalic, Moist mucous membranes
Respiratory: Clear
Cardiac: S1/S2 and Regular Rhythm
GI: Soft, Non Tender, Non Distended and Normal Bowel Sounds
Musculoskeletal: No Cyanosis and No Edema
Skin: Warm. Dry.
Neuro: AAO x 3 and Nonfocal/grossly intact
Psych: Calm
Assessment/Plan
#new onset atrial fib with RVR
-At present EKG normal sinus rhythm
-Started on new medication Toprol XL 50 mg daily
-Obtain echo
-Eliquis can be started if it isn't took expensive for the patient and there is no effusion on planned echo 01/11/2024
-Cardiology consulted, recommendations appreciated
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
- Pericardial drain removed 01/07/2024
#New Left Bundle Branch Block, complication of TAVR
#Recent hemorrhagic tamponade, complication of TAVR
#Coronary Artery Disease
-Continue Aspirin
# Normocytic anemia likely postop
-Hemoglobin 9.6
-No active bleeding
-Continue to monitor
-ferrous sulfate continued
#Hypothyroidism
-New diagnosis
-TSH 58.70
-Free T4 low at 0.65
-Ideally would start Levothyroxine 25 mcg daily, however patient living/social situation without assistance in taking his medications can make it difficult
-If Levothyroxine is started -- it would need to be either be administered consistently in the morning on an empty stomach, at least 30 to 60 minutes before food or it could consistently be administered at night 3 to 4 hours after the last meal; and
it cannot be administered within 4 hours of calcium- or iron-containing products (patient takes calcium and ferrous sulfate) or bile acid sequestrants.
-Levothyroxine to be started after patient's daughters agree to start the medicine
#Mild Cognitive Impairment
#BPH
#GERD
-PPI continued
#Hypertension
#insomnia
mirtazapine continued
#DVT prophylaxis
-Heparin subq and SCDs
#CODE status
-full code no intubation
[2024-01-09] MEDS: HEPARIN 5000 UNITS SC (19:22)
--- NOTE | 2024-01-09 20:53 | PTCARENOTE ---
Pt received at start of shift. HR SR w/ BBB and PACs. b/l groin dressing from recent TAVR CDI, surrounding area soft + nontender. Pt AAOx1-2: pt oriented to person, sometimes to place or time. This is pt's baseline. Pt very forgetful - bed alarm on.
Pt informed repeatedly to use call arriaza if need arises to get OOB. Pt denies any CP, SOB, lightheadedness/dizziness. Informed to notify RN if any changes, call arriaza within reach.
[2024-01-09] MEDS: REMERON 7.5 MG PO (22:24)
[2024-01-10] VITALS (11 sets, daily range): BP systolic 91–108; BP diastolic 50–66; PULSE 68; BMI 18.6
[2024-01-10 06:24] LABS: Hematocrit 25.8 % (39.0-52.0); Hemoglobin 9.1 g/dL (13.0-18.0); Mean Corp Hgb Conc. 35.3 g/dL (33.0-37.0); Mean Corpuscular Hgb 30.3 pg (27.0-31.0); Mean Platelet Volume 10.5 fL (7.4-10.4); Platelet Count 152 10^3/uL (130-400); Red Cell Dist. Width 14.6 % (11.5-14.5); White Blood Cell Count 8.5 10^3/uL (4.8-10.8)
[2024-01-10 07:05] LABS: Blood Urea Nitrogen 32 mg/dl (9-20); Carbon Dioxide 21 mmol/L (22-30); Estimated Creatinine Clearance 35 ml/min; Glucose 103 mg/dl (70-99); HDL Cholesterol 37 mg/dl; Total Cholesterol 124 mg/dl (50-199); eGFR 58.53
[2024-01-10 07:19] LABS: Chloride 107 mmol/L (98-107); LDL Cholesterol, Calculated 57 mg/dl; Potassium 4.1 mmol/L (3.5-5.1); Sodium 131 mmol/L (135-145); Triglyceride 150 mg/dl (10-149); Very Low Density Lipoprotein 30 mg/dl (0-30)
[2024-01-10] MEDS: PROTONIX 40 MG PO (08:39)
[2024-01-10] MEDS: TOPROL XL 50 MG PO (08:39)
[2024-01-10] MEDS: ASPIR LOW (ENTERIC COATED) 81 MG PO (08:39)
[2024-01-10] MEDS: HEPARIN 5000 UNITS SC ×2 (08:39→19:31)
--- NOTE | 2024-01-10 08:53 | W.PN.CD ---
Today's Communication / Plan
-
TTE tomorrow
Impression / Plan
-
New PAF with RVR no new AF
- Rhythm: back to sinus. For now plan just BB and no AAD. Not ablation candidate
- Rate: Sinus in mid 60s at rest. In AFib 140s. => will add some BB
- Anticoagulation: plan Eliquis if copay ok and no effusion on echo 01/11/2024
- [id number] at least 3 (HTN, age2)
- TTE tomorrow
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
New LBBB, a direct complication of TAVR
- Continue with monitoring coordinator as planned
Recent hemorrhagic tamponade, a direct complication of TAVR
Mild cognitive impairment may being progressing rapidly per his family present at bedside
Mild nonobstructive CAD
BPH
GERD
Anemai
HTN
Physical Exam
Vital Signs/Labs
Vital Signs
Temp Pulse Resp BP Pulse Ox
98.6 F 75 18 108/55 97
01/10/24 06:01 01/10/24 06:15 01/10/24 06:01 01/10/24 06:04 01/10/24 06:01
01/09/24 01/10/24 01/11/24
06:59 06:59 06:59
Actual Weight 125 lb 14.143 oz
01/10/24 06:12
01/10/24 06:12
PT 15.2 Sec (11.4-14.6) H 01/09/24 10:48
INR 1.21 01/09/24 10:48
APTT 39.6 Sec (23.4-35.0) H 01/09/24 10:48
Magnesium 2.0 mg/dl (1.6-2.3) 01/09/24 10:48
Triglycerides 150 mg/dl (10-149) H 01/10/24 06:12
LDL Cholesterol, Calc 57 mg/dl 01/10/24 06:12
VLDL Cholesterol, Calc 30 mg/dl (0-30) 01/10/24 06:12
HDL Cholesterol 37 mg/dl 01/10/24 06:12
Free T4 0.65 ng/dl (0.78-2.19) L 01/09/24 10:48
Physical Exam
Constitutional: No acute distress
EENT: Anicteric
Cardiovascular: Rhythm & rate is regular and Pedal edema is absent
Respiratory: Respiratory effort normal and Lungs clear to auscul.
GI: Soft
Neuro/Psych: Alert and Oriented
Data Reviewed
-
Date of Service: January 10, 2024
EKG: Tracing Personally Visualized and interpreted (sr)
Echo: Report Reviewed by me
Labs: Labs Reviewed by me
[2024-01-10] MEDS: SYNTHROID 25 MCG PO (14:56)
--- NOTE | 2024-01-10 17:33 | W.PN.HOSP.TC ---
Today's Communication/Plan
-
Echocardiogram in AM
Based on results, consider starting Eliquis 2.5 q12h
Assessment / Plan
Assessment / Plan
#new onset atrial fib with RVR
-Pt reverted to normal sinus rhythm
-Started on new medication Toprol XL 50 mg daily
-Obtain echo
-Eliquis can be started if it isn't too expensive for the patient and there is no effusion on planned echo 01/11/[address] Herrera that plan is to do the echo initially (due to episode of hemorrhagic pericardial effusion with drain removal 01/06) and if echo is neg for recurrent effusion, to start Eliquis 2.5 bid, assuming coverage by insurance)
-Cardiology consulted, recommendations appreciated
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
- Pericardial drain removed 01/07/2024
#New Left Bundle Branch Block, complication of TAVR
#Recent hemorrhagic tamponade, complication of TAVR
#Coronary Artery Disease
-Continue Aspirin
# Normocytic anemia likely postop
-Hemoglobin 9.6
-No active bleeding
-Continue to monitor
-ferrous sulfate continued, but will check Fe studies
#Hypothyroidism
-New diagnosis
-TSH 58.70
-Free T4 low at 0.65
-Ideally would start Levothyroxine 25 mcg daily, based on Thyroid studies, feel that pt needs Thyroid supplement and will order to start Family is concerned that as thyroid medication can not be taken with other meds, adding this would complicate
administration of med. Reviewed with dgt in room, if taken 20-30 minutes prior should not be an issue, but if not, main concern would be decreased absorption and if less is absorbed, that still would be better than not taking at all. Dgt voiced
understanding
-If Levothyroxine is started -- it would need to be either be administered consistently in the morning on an empty stomach, at least 30 to 60 minutes before food or it could consistently be administered at night 3 to 4 hours after the last meal; and
it cannot be administered within 4 hours of calcium- or iron-containing products (patient takes calcium and ferrous sulfate) or bile acid sequestrants. Based on CBC, unclear if needs Fe supplement, will check Fe level. Though main issue with both
Calcium and Fe is taking antiacids. CXR reviewed with dgt and did demonstrate severe osteoporotic changes involving upper arms, ribs, etc
#Mild Cognitive Impairment
discussed with dgt, pt most likely should transition from Independent Living to Assisted Living in his facility
#BPH
Tremor- benign familial
dgt concerned about stopping Inderal 10 mg qhs. Explained that this is a very low dose of a short acting medication and that the Toprol XL will probably be more effective at controlling these symptoms
#GERD
-PPI continued
#Hypertension
#insomnia
mirtazapine continued
#DVT prophylaxis
-Heparin subq and SCDs
#CODE status
-full code no intubation
Anticipated Discharge: 24 - 48 hours
Subjective/Interval History
-
Date of Service: January 10, 2024
Awake, alert, answering basic questions
Objective Data
-
Labs:
Laboratory Results
01/10/24
06:12
WBC 8.5
Hgb 9.1 L
Hct 25.8 L
Plt Count 152
Sodium 131 L
Potassium 4.1
Chloride 107
Carbon Dioxide 21 L
BUN 32 H
Creatinine 1.2
Glucose 103 H
Calcium 9.0
Vital Signs:
Vital Signs
Temp Pulse Resp BP Pulse Ox
97.8 F 61 20 91/55 100
01/10/24 15:24 01/10/24 15:24 01/10/24 15:24 01/10/24 15:25 01/10/24 15:24
I&O
01/09/24 01/10/24 01/11/24
06:59 06:59 06:59
Intake Total 480 / 480 100 / 100
Output Total 525 / 525
Balance 480 / 480 -425 / -425
Review of Systems
-
History Source: Patient and Family (1 dgt in room, other dgt on facetime)
Constitutional: Denies Fever
EENT: Reports No Symptoms Reported
Respiratory: Reports No Symptoms; Denies Trouble Breathing
Cardiac: Denies Chest Pain
Abdomen/GI: Reports No Symptoms
Musculoskeletal: Reports No Symptoms
Physical Exam
-
General: Well Developed, Well Nourished, No Apparent Distress and Appears Chronically Ill
HEENT: Normocephalic, Atraumatic and Moist Mucous Membranes
Respiratory: Clear to Auscultation; Negative Wheezes, Rales or Rhonchi
Cardiac: Regular Rhythm, S1/S2 and Murmur (2/6sem)
GI: Soft, Nontender and Nondistended
Musculoskeletal: No Clubbing, No Cyanosis and No Edema
Psych: Calm
--- NOTE | 2024-01-10 18:10 | PTCARENOTE ---
01/10/24 1330 Received patient in bed. Pt and daughter at bedside. Explained plan of care for rest of day. VSS. Pt on room air @100%. Pt oriented to self only. Confused to time and place, situation. Pt redirected and reoriented as needed. Pt for Echo
in AM. Will monitor.
--- NOTE | 2024-01-10 19:35 | PTCARENOTE ---
Assumed care. Patient forgetful, pleasant. SR with a 1st degree HB, BBB. Denies pain or shortness of breath, lungs CTA, call arriaza in reach, bed alarm is audible
[2024-01-10] MEDS: REMERON 7.5 MG PO (23:07)
[2024-01-11] VITALS (9 sets, daily range): BP systolic 94–117; BP diastolic 44–61; PULSE 56; O2SAT 100; BMI 18.7
[2024-01-11] MEDS: SYNTHROID 25 MCG PO (05:19)
[2024-01-11 05:27] LABS: Hematocrit 24.5 % (39.0-52.0); Hemoglobin 8.4 g/dL (13.0-18.0); Mean Corp Hgb Conc. 34.3 g/dL (33.0-37.0); Mean Corpuscular Hgb 29.4 pg (27.0-31.0); Mean Corpuscular Volume 85.7 fL (80.0-94.0); Mean Platelet Volume 9.9 fL (7.4-10.4); Platelet Count 161 10^3/uL (130-400); Red Blood Cell Count 2.86 10^6/uL (4.70-6.10); Red Cell Dist. Width 14.8 % (11.5-14.5); White Blood Cell Count 7.7 10^3/uL (4.8-10.8)
[2024-01-11 05:56] LABS: Blood Urea Nitrogen 29 mg/dl (9-20); Calcium 8.6 mg/dl (8.4-10.2); Carbon Dioxide 22 mmol/L (22-30); Chloride 107 mmol/L (98-107); Estimated Creatinine Clearance 35 ml/min; Glucose 101 mg/dl (70-99); Iron 29 ug/dl (49-181); Potassium 3.9 mmol/L (3.5-5.1); Sodium 135 mmol/L (135-145); eGFR 58.53
[2024-01-11 06:05] LABS: Percent Saturation 13 % (20-50); Total Iron Binding Capacity 215 ug/dl (261-462)
[2024-01-11 06:32] LABS: Ferritin 60.7 ng/ml (17.9-464.0)
[2024-01-11 07:03] LABS: Folate > 20.0 ng/ml (2.76-20); Vitamin B12 220 pg/ml (239-931)
[2024-01-11] MEDS: PROTONIX 40 MG PO (07:07)
[2024-01-11] MEDS: ASPIR LOW (ENTERIC COATED) 81 MG PO (07:07)
[2024-01-11] MEDS: HEPARIN 5000 UNITS SC ×2 (07:10→19:27)
[2024-01-11] MEDS: SENOKOT-S 1 TABLET PO (08:23)
[2024-01-11] MEDS: TOPROL XL 50 MG PO (08:27)
[2024-01-11] MEDS: MIRALAX 17 GRAMS PO (11:39)
--- NOTE | 2024-01-11 13:19 | CM ---
Reviewed chart. Met [facility] Mr. Bonilla and his two daughters to review discharge plans. Prior to admission he was just transferred to [facility] for SNF/Rehab. He was re-admitted with pina thorne. Normally he resides alone in the independent
section of [facility]. Prior to admission he was able to ambulate without an assisted device. We reviewed recommendations for SNF/Rehab. with them. Family is thinking he will do better in his own home environment with VNA
Services for RN. P.T., O.T., Speech and CHILDCARE AIDE. Telephone call to [facility] to review VNA Services. [facility] states they use [facility] in their community. [facility] Sent the referral. Telephone call to his insurance to check on coverage for Eliquis 2.5 mg bid. his co-pay would be $47.00 a month. Reviewed co-pay with him and family. Placed the one month free coupon in the red discharge folder.
Daughters state they will also be going to check in on him. Daughter was going to check with [facility] if they have a person they can hire to assist with his medications. Medical work-up in progress. The discharhe plan is to return to his apartment
at [facility] with [facility] versus SNF/Rehab. if family decides on SNF. Will need to pre-cert for SNF/Rehab. with his insurance.
--- NOTE | 2024-01-11 14:44 | W.PN.CD ---
Today's Communication / Plan
-
synthroid started- dtrs know primary needs to repeat TSH in a month and possibly increase synthroid dose if TSH remains elevated
ECHO today then decision about timing of when to resume OAT
Impression / Plan
-
New PAF with RVR no new AF
- Rhythm: back to sinus. For now plan just BB and no AAD. Not ablation candidate
- Rate: Sinus in mid 60s at rest. In AFib 140s. => will add some BB
- Anticoagulation: plan Eliquis if copay ok and no significant effusion on echo 01/11/2024. ECHO pending
- [id number] at least 3 (HTN, age2)
Recent TAVR for symptomatic severe , complicated by tamponade requiring drainage 2 hrs post procedure
New LBBB post TAVR prompted outpt monitoring manager which showed the AF/RVR at home
- Continue with monitoring manager as planned
Mild to moderate cognitive impairment UNCHANGED over past month
Hypothyroidism: NEW DIAGNOSIS. TSH 54 with low T4. Synthroid started
Mild nonobstructive CAD
BPH
GERD
Anemia. Ferritin OK but Fe and Fe saturation low.
-consider once daily FeSO4
HTN
DISPO: Waiting for ECHO . Then decision about timing of OAT. Dsicussed with daughters
Physical Exam
Vital Signs/Labs
Vital Signs
Temp Pulse Resp BP Pulse Ox
97.4 F 57 16 104/54 99
01/11/24 11:51 01/11/24 12:45 01/11/24 11:51 01/11/24 11:52 01/11/24 11:51
01/10/24 01/11/24 01/12/24
06:59 06:59 06:59
Actual Weight 125 lb 14.143 oz 126 lb 12.253 oz
01/11/24 05:16
01/11/24 05:16
PT 15.2 Sec (11.4-14.6) H 01/09/24 10:48
INR 1.21 01/09/24 10:48
APTT 39.6 Sec (23.4-35.0) H 01/09/24 10:48
Magnesium 2.0 mg/dl (1.6-2.3) 01/09/24 10:48
Triglycerides 150 mg/dl (10-149) H 01/10/24 06:12
LDL Cholesterol, Calc 57 mg/dl 01/10/24 06:12
VLDL Cholesterol, Calc 30 mg/dl (0-30) 01/10/24 06:12
HDL Cholesterol 37 mg/dl 01/10/24 06:12
Free T4 0.65 ng/dl (0.78-2.19) L 01/09/24 10:48
Physical Exam
Constitutional: No acute distress and Other (ambulating in hallway now. I examined earlier this AM)
Cardiovascular: Rhythm & rate is regular and Systolic murmur present (1-2/6 aortic outflow murmur)
Respiratory: Respiratory effort normal and Lungs clear to auscul.
GI: Non tender
Neuro/Psych: Motor deficits absent
Data Reviewed
-
Date of Service: January 11, 2024
--- NOTE | 2024-01-11 16:27 | W.PN.UPDATE ---
Update Note
Progress Note Update
ECHO todays shows:
Normal LV function
NO pericardial effusion
Well seated aminata valve with mean gradient 5 and no AI
Rec:
start Eliquis 2.5 mg bid on AM
Discharge tomorrow
HOME MEDS:
Calcium (as before) ONCE (not twice) daily with dinner
Levothyroxine 25mcg daily
Fe (as before) ONCE daily with dinner
Eliquis 2.5 mg bid (proper dose as age>80 and wt<60kg)
mirtazipine as before
STOP ASA
STOP protonix
He has cardiac followup with Dr Chambers in mid January
--- NOTE | 2024-01-11 16:56 | W.PN.HOSP.TC ---
Today's Communication/Plan
-
IV Fe tonight
Assessment / Plan
Assessment / Plan
#new onset atrial fib with RVR
-Pt reverted to normal sinus rhythm
-Started on new medication Toprol XL 50 mg daily
-01/10 echo: 1. Followup study to evaluate for recurrent pericardial effusion prior to
starting OAT for new AF
2. LVH with normal LV function with EF 60-65%
3. Post TAVR (29mm S3) one week ago with mean gradient 5mm Hg and no AI
4. NO pericardial effusion
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
- Pericardial drain removed 01/07/2024
#New Left Bundle Branch Block, complication of TAVR
#Recent hemorrhagic tamponade, complication of TAVR
Dr Eric recommends start Eliquis 2.5 bid on AM
and okay to stop ASA
#Coronary Artery Disease
-stop ASA when Eliquis started Aspirin
# Normocytic anemia likely postop
-Hemoglobin 9.6
-No active bleeding
-Continue to monitor
-will give 1 dose of Fe infusion now to replace oral Fe
#Hypothyroidism
-New diagnosis
-TSH 58.70
-Free T4 low at 0.65
-Ideally would start Levothyroxine 25 mcg daily, based on Thyroid studies, feel that pt needs Thyroid supplement and will order to start Family is concerned that as thyroid medication can not be taken with other meds, adding this would complicate
administration of med. Reviewed with dgt in room, if taken 20-30 minutes prior should not be an issue, but if not, main concern would be decreased absorption and if less is absorbed, that still would be better than not taking at all. Dgt voiced
understanding
-If Levothyroxine is started -- it would need to be either be administered consistently in the morning on an empty stomach, at least 30 to 60 minutes before food or it could consistently be administered at night 3 to 4 hours after the last meal; and
it cannot be administered within 4 hours of calcium- or iron-containing products (patient takes calcium and ferrous sulfate) or bile acid sequestrants. Based on CBC, unclear if needs Fe supplement, will check Fe level. Though main issue with both
Calcium and Fe is taking antiacids. CXR reviewed with dgt and did demonstrate severe osteoporotic changes involving upper arms, ribs, etc
#Mild Cognitive Impairment
discussed with dgt, pt most likely should transition from Independent Living to Assisted Living in his facility
#BPH
Tremor- benign familial
dgt concerned about stopping Inderal 10 mg qhs. Explained that this is a very low dose of a short acting medication and that the Toprol XL will probably be more effective at controlling these symptoms
#GERD
-PPI continued
#Hypertension
#insomnia
mirtazapine continued
#DVT prophylaxis
-Heparin subq and SCDs
#CODE status
-full code no intubation
met with both dgts today
Potential dc tomorrow
Anticipated Discharge: Within 24 hours
Subjective/Interval History
-
Date of Service: January 11, 2024
Appears comfortable, sitting in chair
Objective Data
-
Labs:
Laboratory Results
01/11/24
05:16
WBC 7.7
Hgb 8.4 L
Hct 24.5 L
Plt Count 161
Sodium 135
Potassium 3.9
Chloride 107
Carbon Dioxide 22
BUN 29 H
Creatinine 1.2
Glucose 101 H
Calcium 8.6
Vital Signs:
Vital Signs
Temp Pulse Resp BP Pulse Ox
98.1 F 57 16 104/54 99
01/11/24 15:18 01/11/24 15:18 01/11/24 15:18 01/11/24 11:52 01/11/24 15:18
I&O
01/10/24 01/11/24 01/12/24
06:59 06:59 06:59
Intake Total 480 / 480 100 / 100
Output Total 1125 / 1125
Balance 480 / 480 -1025 / -1025
Review of Systems
-
History Source: Patient and Family (both dgt in room, reviewing situation)
Constitutional: Denies Fever
EENT: Reports No Symptoms Reported
Respiratory: Reports No Symptoms; Denies Trouble Breathing
Cardiac: Denies Chest Pain
Abdomen/GI: Reports No Symptoms
Musculoskeletal: Reports No Symptoms
Physical Exam
-
General: Well Developed, Well Nourished, No Apparent Distress and Appears Chronically Ill
HEENT: Normocephalic, Atraumatic and Moist Mucous Membranes
Respiratory: Clear to Auscultation; Negative Wheezes, Rales or Rhonchi
Cardiac: Regular Rhythm, S1/S2 and Murmur (2/6sem)
GI: Soft, Nontender and Nondistended
Musculoskeletal: No Clubbing, No Cyanosis and No Edema
Psych: Calm
[2024-01-11] MEDS: FERRLECIT 110 MG IV (17:14)
--- NOTE | 2024-01-11 18:00 | PTCARENOTE ---
Pt remains in SR, rate in the 50's to 60's. OOB to the chair most of the day. Assisted to the BR with one assist, gait steady. Denies any pain or sob. Remains confused to time and place. Daughter updated on meds and pt's status.
[2024-01-11] MEDS: REMERON 7.5 MG PO (22:36)
--- NOTE | 2024-01-11 23:43 | PTCARENOTE ---
Addendum entered by Hussein Kaur RN 01/12/24 03:33:
Pt urinated again - yellow.
Original Note:
Pt received at start of shift, HR SR w/ BBB. Pt oriented to self only. B/l groin sites YUNIOR, soft + nontender. Bed alarm on. Pt's urine noted to be darker - tea colored. Pt denies any pain, SOB, or lightheadedness/dizziness at this time.
[2024-01-12 03:14] VITALS: BP 117/54
[2024-01-12 03:34] VITALS: BMI 18.9
[2024-01-12 03:37] LABS: Hematocrit 25.7 % (39.0-52.0); Hemoglobin 8.9 g/dL (13.0-18.0); Mean Corp Hgb Conc. 34.6 g/dL (33.0-37.0); Mean Corpuscular Hgb 29.6 pg (27.0-31.0); Mean Corpuscular Volume 85.4 fL (80.0-94.0); Platelet Count 161 10^3/uL (130-400); Red Blood Cell Count 3.01 10^6/uL (4.70-6.10); Red Cell Dist. Width 14.8 % (11.5-14.5); White Blood Cell Count 9.1 10^3/uL (4.8-10.8)
[2024-01-12 04:01] LABS: Blood Urea Nitrogen 30 mg/dl (9-20); Calcium 8.3 mg/dl (8.4-10.2); Carbon Dioxide 25 mmol/L (22-30); Chloride 106 mmol/L (98-107); Estimated Creatinine Clearance 36 ml/min; Glucose 100 mg/dl (70-99); Potassium 4.1 mmol/L (3.5-5.1); Sodium 136 mmol/L (135-145); eGFR 58.53
[2024-01-12] MEDS: SYNTHROID 25 MCG PO (06:42)
[2024-01-12] MEDS: PROTONIX 40 MG PO (07:30)
[2024-01-12] MEDS: ASPIR LOW (ENTERIC COATED) 81 MG PO (07:30)
[2024-01-12] MEDS: TOPROL XL 50 MG PO (07:30)
[2024-01-12 07:33] VITALS: BP 101/56
[2024-01-12] MEDS: HEPARIN 5000 UNITS SC (07:35)
--- NOTE | 2024-01-12 08:36 | W.PN.CD ---
Addendum entered and electronically signed by Rodolfo Dowell MD 01/12/24 08:43:
-
-
STOP ASA when Eliquis starts
-
-
Original Note:
Today's Communication / Plan
-
start Eliquis 2.5 mg bid tomorrow ( AM 01/13/2024)
Cardiology will sign off
Please call with questions
Thyroid replacement per hospitalist
F/u with his wind farm designer Shane Velasco, DO 02/01/24 at 2:00 pm
Impression / Plan
-
New PAF with RVR no new AF
- Rhythm: back to sinus. For now plan just BB and no AAD. Not ablation candidate
- Rate: Sinus in mid 60s at rest. In AFib 140s. => will add some BB => tolerating well
- Anticoagulation: plan Eliquis 2.5 bid starting 01/13/2024
- echo 01/11/2024. ECHO yesterday 01/11/2024: good valve, no effusion
- [id number] at least 3 (HTN, age2)
Hypothyroid
- New Dx this admit
- Should be started on thyroid replacement per hospitalist
Recent TAVR for symptomatic severe , complicated by tamponade requiring drainage 2 hrs post procedure
New LBBB post TAVR prompted outpt environmental monitoring specialist which showed the AF/RVR at home
- Continue with environmental monitoring specialist as planned
Mild to moderate cognitive impairment UNCHANGED over past month
Hypothyroidism: NEW DIAGNOSIS. TSH 54 with low T4. Synthroid started
Mild nonobstructive CAD
BPH
GERD
Anemia. Ferritin OK but Fe and Fe saturation low.
-consider once daily FeSO4
HTN
Physical Exam
Vital Signs/Labs
Vital Signs
Temp Pulse Resp BP Pulse Ox
97.8 F 50 20 117/54 97
01/12/24 07:54 01/12/24 03:30 01/12/24 07:54 01/12/24 03:14 01/12/24 03:14
01/11/24 01/12/24 01/13/24
06:59 06:59 06:59
Actual Weight 57.5 kg 57.9 kg
01/12/24 03:28
01/12/24 03:28
PT 15.2 Sec (11.4-14.6) H 01/09/24 10:48
INR 1.21 01/09/24 10:48
APTT 39.6 Sec (23.4-35.0) H 01/09/24 10:48
Magnesium 2.0 mg/dl (1.6-2.3) 01/09/24 10:48
Triglycerides 150 mg/dl (10-149) H 01/10/24 06:12
LDL Cholesterol, Calc 57 mg/dl 01/10/24 06:12
VLDL Cholesterol, Calc 30 mg/dl (0-30) 01/10/24 06:12
HDL Cholesterol 37 mg/dl 01/10/24 06:12
Free T4 0.65 ng/dl (0.78-2.19) L 01/09/24 10:48
Physical Exam
Constitutional: No acute distress
EENT: Anicteric
Cardiovascular: Rhythm & rate is regular, Pedal edema is absent and Rub absent
Respiratory: Respiratory effort normal and Lungs clear to auscul.
GI: Soft and Distention absent
Neuro/Psych: Alert
Data Reviewed
-
Date of Service: January 12, 2024
[2024-01-12 11:11] VITALS: BP 128/48
--- NOTE | 2024-01-12 13:30 | W.PN.HOSP.TC ---
Today's Communication/Plan
-
dc now
Assessment / Plan
Assessment / Plan
#new onset atrial fib with RVR
-Pt reverted to normal sinus rhythm
-Started on new medication Toprol XL 50 mg daily
-01/11: 1. Followup study to evaluate for recurrent pericardial effusion prior to
starting OAT for new AF
2. LVH with normal LV function with EF 60-65%
3. Post TAVR (29mm S3) one week ago with mean gradient 5mm Hg and no AI
4. NO pericardial effusion
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
- Pericardial drain removed 01/07/2024
#New Left Bundle Branch Block, complication of TAVR
#Recent hemorrhagic tamponade, complication of TAVR
Dr Dowell recommends start Eliquis 2.5 bid on AM
and okay to stop ASA
#Coronary Artery Disease
-stop ASA when Eliquis started Aspirin
# Normocytic anemia likely postop
-Hemoglobin 9.6
-No active bleeding
-Continue to monitor
- given 1 dose of Fe infusion now to replace oral Fe
#Hypothyroidism
-New diagnosis
-TSH 58.70
-Free T4 low at 0.65
-Ideally would start Levothyroxine 25 mcg daily, based on Thyroid studies, feel that pt needs Thyroid supplement and will order to start Family is concerned that as thyroid medication can not be taken with other meds, adding this would complicate
administration of med. Reviewed with dgt in room, if taken 20-30 minutes prior should not be an issue, but if not, main concern would be decreased absorption and if less is absorbed, that still would be better than not taking at all. Dgt voiced
understanding
-If Levothyroxine is started -- it would need to be either be administered consistently in the morning on an empty stomach, at least 30 to 60 minutes before food or it could consistently be administered at night 3 to 4 hours after the last meal; and
it cannot be administered within 4 hours of calcium- or iron-containing products (patient takes calcium and ferrous sulfate) or bile acid sequestrants. Based on CBC, unclear if needs Fe supplement, will check Fe level. Though main issue with both
Calcium and Fe is taking antiacids. CXR reviewed with dgt and did demonstrate severe osteoporotic changes involving upper arms, ribs, etc
#Mild Cognitive Impairment
discussed with dgt, pt most likely should transition from Independent Living to Assisted Living in his facility
#BPH
Tremor- benign familial
dgt concerned about stopping Inderal 10 mg qhs. Explained that this is a very low dose of a short acting medication and that the Toprol XL will probably be more effective at controlling these symptoms
#GERD
-PPI continued
#Hypertension
#insomnia
mirtazapine continued
#DVT prophylaxis
-Heparin subq and SCDs
#CODE status
-full code no intubation
dc to home
see dictated note
More than 30 minutes spent in discharge including
Final examination of the patient
Summarizing hospital stay
Instructions for continuing care to all relevant caregivers
Preparation of discharge records, prescriptions, and referral forms
Total time spent (in minutes): 45
Anticipated Discharge: Today
Subjective/Interval History
-
Date of Service: January 12, 2024
Awake, alert, conversant
Objective Data
-
Labs:
Laboratory Results
01/12/24
03:28
WBC 9.1
Hgb 8.9 L
Hct 25.7 L
Plt Count 161
Sodium 136
Potassium 4.1
Chloride 106
Carbon Dioxide 25
BUN 30 H
Creatinine 1.2
Glucose 100 H
Calcium 8.3 L
Vital Signs:
Vital Signs
Temp Pulse Resp BP Pulse Ox
97.6 F 54 18 128/48 100
05/29/24 11:10 01/12/24 11:15 01/12/24 11:10 01/12/24 11:11 01/12/24 11:10
I&O
01/11/24 01/12/24 01/13/24
06:59 06:59 06:59
Intake Total 100 / 100 480 / 480
Output Total 1125 / 1125 200 / 200
Balance -1025 / -1025 280 / 280
Review of Systems
-
History Source: Patient and Family (li Merino,dgt in room and at compute)
Constitutional: Denies Fever
EENT: Reports No Symptoms Reported
Respiratory: Reports No Symptoms; Denies Trouble Breathing
Cardiac: Denies Chest Pain
Abdomen/GI: Reports No Symptoms
Musculoskeletal: Reports No Symptoms
Physical Exam
-
General: Well Developed, Well Nourished, No Apparent Distress and Appears Chronically Ill
HEENT: Normocephalic, Atraumatic and Moist Mucous Membranes
Respiratory: Clear to Auscultation; Negative Wheezes, Rales or Rhonchi
Cardiac: Regular Rhythm, S1/S2 and Murmur (2/6sem)
GI: Soft, Nontender and Nondistended
Musculoskeletal: No Clubbing, No Cyanosis and No Edema
Psych: Calm
--- NOTE | 2024-01-12 13:56 | W.DS.TRANS ---
DC Summary - Regional Sales Manager
-
Discharge Instructions:
Discharge Diagnosis/Procedures Atrial fibrillation with rapid ventricular
response
Diet Low Sodium
Activity With assistance,With Walker
Driving Restrictions No driving
Bathing Restrictions None
Blood Work CBC, BMP, Thyroid Profile in 2-3 weeks
Other Services VN,PT,ST,OT
Instructions:
Stand-Alone Forms:
Changes to Home Medications: Yes
Discharge Medications:
DC Medications w/original date entered in [employer]
mirtazapine 7.5 mg tablet 7.5 mg PO HS Mental Health/Anxiety 12/31/23
acetaminophen 325 mg tablet 650 mg (2 x 325 mg) PO Q4HPRN PRN PEGUERO, mild pain, or fever >101F #60 tabs 01/08/24
albuterol sulfate 2.5 mg/3 mL (0.083 %) solution for nebulization 2.5 mg inhalation R Q4HPRN PRN sob 01/09/24
bisacodyl 10 mg rectal suppository (Dulcolax (bisacodyl)) 10 mg TX DAILYPRN PRN if no bm aftr mom 01/09/24
calcium carbonate 500 mg-vitamin D3 10 mcg (400 unit) tablet (Calcium 500 + D) 1 tab PO BID Supplement 01/09/24
magnesium hydroxide 400 mg/5 mL oral suspension (Milk of Magnesia) 2,400 mg PO DAILYPRN PRN constipation 01/09/24
apixaban 2.5 mg tablet (Eliquis) 2.5 mg PO BID #60 tabs 01/12/24
levothyroxine 25 mcg tablet 25 mcg PO DAILY @ 0600 #30 tabs 01/12/24
metoprolol succinate 50 mg tablet,extended release 24 hr 50 mg PO DAILY #30 tabs 01/12/24
Home Medication Changes
stop Aspirin, Protonix, Iron , Inderal
start Eliquis and Toprol XL
Pending Results: No
[2024-01-12 14:58] VITALS: BP 123/45
--- NOTE | 2024-01-12 15:35 | PTCARENOTE ---
Pt received in [facility]. Remains confused to time and place. PT OOB to the chair all day. Ambulates with assist to the BR. Gait steady with the walker. Pt discharged to his home with his daughter. Discharge instructions given and reviewed with daughter
with full understanding.
== END 2024-01-12 15:48 | disposition home health service (06) | DRG 310 ==
LOC: IVU 12:43
PROVIDERS: Registered Nurse; ADMITTING PHYSICIAN Hospitalist; ATTENDING PHYSICIAN Internal Medicine; CONSULT PHYSICIAN Internal Medicine Cardiovascular Disease; EMERGENCY PHYSICIAN Student in an Organized Health Care Education/Training Program
DX: I48.0 Paroxysmal atrial fibrillation (principal); E03.9 Hypothyroidism, unspecified; D64.9 Anemia, unspecified; I44.7 Left bundle-branch block, unspecified; I10 Essential (primary) hypertension; E78.5 Hyperlipidemia, unspecified; F41.9 Anxiety disorder, unspecified; K21.9 Gastro-esophageal reflux disease without esophagitis; I35.0 Nonrheumatic aortic (valve) stenosis; G47.00 Insomnia, unspecified; I25.10 Atherosclerotic heart disease of native coronary artery without angina pectoris; N40.0 Benign prostatic hyperplasia without lower urinary tract symptoms; G31.84 Mild cognitive impairment of uncertain or unknown etiology; R25.1 Tremor, unspecified; Z96.641 Presence of right artificial hip joint; Z79.82 Long term (current) use of aspirin; Z87.891 Personal history of nicotine dependence; Z95.2 Presence of prosthetic heart valve; Z85.46 Personal history of malignant neoplasm of prostate
CPT/HCPCS: 93308; 80048; 80053; 80061; 82607; 82728; 82746; 83540; 83550; 83735; 84439; 84443; 85025; 85027; 85610; 85730; 87070; 93005; 93321; 93325; 97116; 97162; 97166; 97530; 99285; J2916